=== PATIENT | male | born 1980 | race Caucasian/White ===

== ENCOUNTER 2021-01-19 01:06 | Emergency (ER) | payer MEDICAID, OTHER ==
[~2021-01-19] VITALS: Ht 177.8 cm; Wt 65.8 kg
[2021-01-19 01:57] VITALS: BP 142/88
[2021-01-19] MEDS ORDERED: ACETAMINOPHEN ES 500 MG TABLET PO ONE (02:00)
[2021-01-19] MEDS ORDERED: ACETAMINOPHEN ES 500 MG TABLET ONE (02:02)
--- NOTE | 2021-01-19 02:38 | NUR ---
CALL FROM LAB, RAPID COVID NEGATIVE.
== END 2021-01-19 03:36 | disposition home or self-care (01) ==
LOC: ER 01:08
DX: B34.9 Viral infection, unspecified (principal); R51.9 Headache, unspecified; Z20.822 Contact with and (suspected) exposure to COVID-19
CPT/HCPCS: 87070; 87426; 87880; 99283; C9803; 86403-TC